=== PATIENT | male | born 1995 | race Caucasian/White ===

== ENCOUNTER 2018-05-31 23:52 | Emergency (ER) | payer OTHER ==
[~2018-05-31] VITALS: Ht 167.6 cm; Wt 81.6 kg
[2018-06-01] MEDS ORDERED: KETO10TA2 PO (01:56)
[2018-06-01] MEDS ORDERED: NORFLEX100MG PO (01:56)
== END 2018-06-01 | disposition home or self-care (01) ==
LOC: ER 23:52
DX: M62.838 Other muscle spasm (principal)